=== PATIENT | female | born 1950 | race Caucasian/White ===

== ENCOUNTER 2021-03-12 03:45 | Inpatient (IN) | payer MEDICARE ==
[2021-03-12] MEDS ORDERED: Nitroglycerin 0.4 MG TAB 1 EACH ONE (03:55)
[2021-03-12] MEDS ORDERED: Morphine 4 MG/ML VIAL ONE (03:55)
[2021-03-12 04:24] LABS: #Basophils 0.1 thou/uL (0.0-0.2); #Eosinphils 0.2 thou/uL (0.0-0.7); #Lymphocytes 4.1 thou/uL (1.20-3.40); #Monocytes 1.1 thou/uL (0.11-0.59); #Neutrophils 6.8 thou/uL (1.40-6.50); %Basophils 0.5 % (0.0-1.0); %Eosinophils 1.3 % (0.0-10.0); %Lymphocytes 33.7 % (21.0-51.0); %Monocytes 8.6 % (0.0-10.0); %Neutrophils 55.9 % (42.0-75.0); Hemoglobin 13.7 g/dL (12.0-16.0); Mean Corpuscular HGB CONC 32.6 g/dL (32.0-36.0); Mean Corpuscular Hemoglobin 29.6 pg (27.0-31.0); Mean Corpuscular Volume 90.7 fL (78.0-98.0); Platelet Count 266 thou/uL (130-400); RBC Distribution Width 13.1 % (11.5-14.5); Red Blood Cell (RBC) Count 4.63 mill/uL (4.20-5.40); White Blood Cell (WBC) Count 12.2 thou/uL (4.8-10.8)
[2021-03-12 04:53] LABS: ALT (SGPT) 14 U/L (8-55); AST (SGOT) 13 U/L (5-34); Albumin 3.9 g/dL (3.4-4.8); Alkaline Phosphatase 95 U/L (40-110); Anion Gap 14 mmol/L (10-20); BUN (Urea Nitrogen) 23 mg/dL (9.8-20.1); Bilirubin, Total 0.3 mg/dL (0.2-1.2); Calc. Creatinine Clearance 0 mL/min (70-130); Calcium 9.8 mg/dL (7.8-10.44); Carbon Dioxide 21 mmol/L (23-31); Chloride 106 mmol/L (98-107); Globulin 3.1 g/dL (2.4-3.5); Glucose 182 mg/dL (83-110); Lipase 45 U/L (8-78); Potassium 3.1 mmol/L (3.5-5.1); Sodium 138 mmol/L (136-145)
[2021-03-12] MEDS ORDERED: Aspirin Chewable 81 MG TAB ONE ×3 (04:59→05:00)
[2021-03-12 05:06] LABS: CKMB 4.1 ng/mL (0-6.6)
[2021-03-12] MEDS ORDERED: Potassium Chloride 20 MEQ TAB PO SCH ×2 (06:45→08:49)
[2021-03-12 07:32] LABS: Troponin I 3.171 ng/mL (< 0.028)
[2021-03-12] MEDS ORDERED: Enoxaparin Sodium 40 MG/0.4 ML SYRINGE SC SCH (08:15)
[2021-03-12] MEDS ORDERED: Nitroglycerin 0.4 MG TAB (25 Tab Bottle) SL PRN ×3 (08:15→20:30)
[2021-03-12] MEDS ORDERED: Morphine 2 MG/ML VIAL SLOW IVP PRN (08:20)
[2021-03-12] MEDS ORDERED: Magnesium 2 GM/50 ML 2 GM in Premix Bag 1 BAG IVPB SCH (09:00)
[2021-03-12] MEDS ORDERED: Magnesium Sulfate 2 GM in Sodium Chloride 0.9% 100 ML IVPB SCH (09:00)
[2021-03-12] MEDS ORDERED: Enoxaparin Sodium 80 MG/0.8 ML SYRINGE SC SCH (09:00)
[2021-03-12 09:30] VITALS: BMI 31.4
[2021-03-12] MEDS ORDERED: Iopamidol 370 76% 100 ML VIAL ONE (09:30)
[2021-03-12] MEDS: Aspirin 325 mg Enteric Coated Tablet PO SCH (09:44)
[2021-03-12 10:00] LABS: Hemoglobin 13.3 g/dL (12.0-16.0); Mean Corpuscular HGB CONC 32.9 g/dL (32.0-36.0); Mean Corpuscular Hemoglobin 30.2 pg (27.0-31.0); Mean Corpuscular Volume 91.8 fL (78.0-98.0); Platelet Count 272 thou/uL (130-400); RBC Distribution Width 13.1 % (11.5-14.5); Red Blood Cell (RBC) Count 4.42 mill/uL (4.20-5.40); White Blood Cell (WBC) Count 11.1 thou/uL (4.8-10.8)
[2021-03-12 10:17] LABS: Eosinophils 3 % (0-10); Lymphocytes 19 % (21-51); MDiff Complete? YES; Monocytes 6 % (0-10); Neutrophil 63 % (42-75); Platelet Morphology Comment Appears Adequate; Reactive Lymphocytes 8 % (0-10)
[2021-03-12 10:27] LABS: Troponin I 6.688 ng/mL (< 0.028)
[2021-03-12] MEDS ORDERED: Metoprolol Tartrate 25 MG TAB PO SCH ×2 (10:30→21:00)
[2021-03-12] MEDS ORDERED: Carvedilol 6.25 MG TAB PO SCH ×3 (11:00→17:00)
[2021-03-12] MEDS ORDERED: Carvedilol 3.125 MG TAB PO SCH (11:30)
[2021-03-12] MEDS ORDERED: Clopidogrel Bisulfate 300 MG TAB PO SCH (11:30)
[2021-03-12 13:58] LABS: Troponin I 9.144 ng/mL (< 0.028)
[2021-03-12] MEDS: Carvedilol 3.125 MG TAB PO SCH (16:57)
[2021-03-12] MEDS ORDERED: Lidocaine 1% (PF) 30 ML VIAL ONE (17:52)
[2021-03-12] MEDS ORDERED: Nitroglycerin 100MG/250ML BOT 250 ML ONE (17:55)
[2021-03-12] MEDS ORDERED: Verapamil 5 MG/2 ML VIAL ONE (17:55)
[2021-03-12] MEDS ORDERED: Heparin 10,000 UNITS/ 10 ML VIAL ONE (17:55)
[2021-03-12] MEDS: Atorvastatin Calcium 40 MG TAB PO SCH (20:07)
[2021-03-12] MEDS ORDERED: Acetaminophen/Codeine 30-300mg Tablet PO PRN ×4 (20:30)
[2021-03-12] MEDS ORDERED: Sodium Chloride 0.9% 200 ML IV PRN ×2 (20:30)
[2021-03-12] MEDS ORDERED: Atorvastatin Calcium 40 MG TAB PO SCH (21:00)
[2021-03-13 02:38] LABS: SARS-CoV-2 NAA Rapid Test Not Detected (NotDetected)
[2021-03-13 05:39] LABS: Hemoglobin A1c 5.9 % (4.0-6.0)
[2021-03-13 05:56] LABS: Anion Gap 13 mmol/L (10-20); BUN (Urea Nitrogen) 16 mg/dL (9.8-20.1); Calc. Creatinine Clearance 62 mL/min (70-130); Calcium 9.3 mg/dL (7.8-10.44); Carbon Dioxide 22 mmol/L (23-31); Cardiac Risk 5.5 (Less than 4.5); Chloride 105 mmol/L (98-107); Cholesterol 193 mg/dl (< 200 Desired); Glucose 117 mg/dL (83-110); HDL Cholesterol 35 mg/dL (>60 Neg Risk); LDL Cholesterol, Calculated 117 mg/dL; Sodium 136 mmol/L (136-145); Triglycerides 204 mg/dL (Less than 150)
[2021-03-13] MEDS: Carvedilol 3.125 MG TAB PO SCH ×2 (08:13→17:21)
[2021-03-13] MEDS: Aspirin 325 mg Enteric Coated Tablet PO SCH (08:13)
[2021-03-13] MEDS ORDERED: Clopidogrel Bisulfate 75 MG TAB PO SCH (09:00)
[2021-03-13] MEDS: Atorvastatin Calcium 40 MG TAB PO SCH (21:16)
[2021-03-14] MEDS: Aspirin 325 mg Enteric Coated Tablet PO SCH (08:05)
[2021-03-14] MEDS: Carvedilol 3.125 MG TAB PO SCH ×2 (08:06→16:46)
[2021-03-14 09:37] LABS: #Eosinphils 0.1 thou/uL (0.0-0.7); #Lymphocytes 2.1 thou/uL (1.20-3.40); #Monocytes 0.9 thou/uL (0.11-0.59); #Neutrophils 6.8 thou/uL (1.40-6.50); %Basophils 0.1 % (0.0-1.0); %Eosinophils 1.3 % (0.0-10.0); %Lymphocytes 21.1 % (21.0-51.0); %Monocytes 8.8 % (0.0-10.0); %Neutrophils 68.7 % (42.0-75.0); Hemoglobin 13.8 g/dL (12.0-16.0); Mean Corpuscular HGB CONC 33.2 g/dL (32.0-36.0); Mean Corpuscular Volume 90.2 fL (78.0-98.0); Platelet Count 257 thou/uL (130-400); RBC Distribution Width 13.2 % (11.5-14.5); White Blood Cell (WBC) Count 9.9 thou/uL (4.8-10.8)
[2021-03-14] MEDS ORDERED: Enoxaparin Sodium 80 MG/0.8 ML SYRINGE SC SCH (11:00)
[2021-03-14] MEDS ORDERED: Lisinopril 10 MG TAB PO SCH (13:00)
[2021-03-14] MEDS: Atorvastatin Calcium 40 MG TAB PO SCH (20:56)
[2021-03-14] MEDS: Enoxaparin Sodium 80 MG/0.8 ML SYRINGE SC SCH (20:56)
[2021-03-15 05:13] LABS: Hemoglobin A1c 5.9 % (4.0-6.0)
[2021-03-15 05:25] LABS: Anion Gap 13 mmol/L (10-20); BUN (Urea Nitrogen) 21 mg/dL (9.8-20.1); Calc. Creatinine Clearance 52 mL/min (70-130); Calcium 9.1 mg/dL (7.8-10.44); Carbon Dioxide 22 mmol/L (23-31); Chloride 106 mmol/L (98-107); Glucose 109 mg/dL (83-110); Potassium 3.7 mmol/L (3.5-5.1); Sodium 137 mmol/L (136-145)
[2021-03-15] MEDS: Lisinopril 10 MG TAB PO SCH (08:44)
[2021-03-15] MEDS: Carvedilol 3.125 MG TAB PO SCH ×2 (08:44→16:41)
[2021-03-15] MEDS: Aspirin 325 mg Enteric Coated Tablet PO SCH (08:44)
[2021-03-15] MEDS: Enoxaparin Sodium 80 MG/0.8 ML SYRINGE SC SCH ×2 (09:04→20:13)
[2021-03-15] MEDS: Atorvastatin Calcium 40 MG TAB PO SCH (20:13)
[2021-03-16 05:25] LABS: #Basophils 0.1 thou/uL (0.0-0.2); #Eosinphils 0.2 thou/uL (0.0-0.7); #Lymphocytes 2.5 thou/uL (1.20-3.40); #Monocytes 0.9 thou/uL (0.11-0.59); #Neutrophils 4.9 thou/uL (1.40-6.50); %Basophils 0.8 % (0.0-1.0); %Eosinophils 2.1 % (0.0-10.0); %Lymphocytes 29.4 % (21.0-51.0); %Monocytes 10.3 % (0.0-10.0); %Neutrophils 57.4 % (42.0-75.0); Hemoglobin 12.8 g/dL (12.0-16.0); Mean Corpuscular HGB CONC 33.8 g/dL (32.0-36.0); Mean Corpuscular Hemoglobin 30.6 pg (27.0-31.0); Mean Corpuscular Volume 90.3 fL (78.0-98.0); Mean Platelet Volume 7.2 fL (7.4-10.4); Platelet Count 266 thou/uL (130-400); White Blood Cell (WBC) Count 8.6 thou/uL (4.8-10.8)
[2021-03-16 05:48] LABS: Anion Gap 13 mmol/L (10-20); BUN (Urea Nitrogen) 19 mg/dL (9.8-20.1); Calc. Creatinine Clearance 53 mL/min (70-130); Carbon Dioxide 19 mmol/L (23-31); Chloride 109 mmol/L (98-107); Glucose 121 mg/dL (83-110); Magnesium 1.7 mg/dL (1.6-2.6); Potassium 3.6 mmol/L (3.5-5.1); Sodium 137 mmol/L (136-145)
[2021-03-16] MEDS: Carvedilol 3.125 MG TAB PO SCH (08:42)
[2021-03-16] MEDS: Lisinopril 10 MG TAB PO SCH (08:42)
[2021-03-16] MEDS ORDERED: Aspirin 81 mg Enteric Coated Tablet PO SCH (09:00)
[2021-03-16] MEDS ORDERED: Clopidogrel Bisulfate 75 MG TAB PO SCH (09:00)
[2021-03-16 12:13] VITALS: BP 113/70; TEMP 98.2
== END 2021-03-16 14:35 | disposition home or self-care (01) | DRG 281 ==
LOC: ERS 03:45 → OBSVTOIN 05:24 → 2SW 05:24 → 2NO 03-13 17:57
PROVIDERS: ADMIT Student in an Organized Health Care Education/Training Program; ATTEND Internal Medicine
PROC: 4A023N7 Measurement of Cardiac Sampling and Pressure, Left Heart, Percutaneous Approach (ICD-10-PCS; principal; 2021-03-12)
PROC: B2111ZZ Fluoroscopy of Multiple Coronary Arteries using Low Osmolar Contrast (ICD-10-PCS; 2021-03-12)
DX: I21.4 Non-ST elevation (NSTEMI) myocardial infarction (principal); I50.22 Chronic systolic (congestive) heart failure; I25.3 Aneurysm of heart; N17.9 Acute kidney failure, unspecified; E87.6 Hypokalemia; E83.42 Hypomagnesemia; I11.0 Hypertensive heart disease with heart failure; I25.10 Atherosclerotic heart disease of native coronary artery without angina pectoris; E78.5 Hyperlipidemia, unspecified; I25.5 Ischemic cardiomyopathy; Z20.822 Contact with and (suspected) exposure to COVID-19
CPT/HCPCS: 36415; 71045; 80048; 80053; 80061; 82553; 83036; 83690; 83735; 84443; 84484; 85025; 93005; 93010; 93306; 93458; 93798; 94760; 97139; G0378; J1644; J1650; J2001; J2270; J3475; Q9967; U0002; U0005

== ENCOUNTER 2021-03-21 12:28 | Outpatient (CLI) | payer MEDICARE | END 2021-03-21 12:29 | disposition home or self-care (01) | LOC: NM 12:28 | PROVIDERS: ATTEND Internal Medicine Cardiovascular Disease | DX: I25.10 Atherosclerotic heart disease of native coronary artery without angina pectoris (principal) | CPT/HCPCS: 78466; A9505 ==

== ENCOUNTER 2021-03-31 08:49 | Outpatient (CLI) | payer MEDICARE | END 2021-03-31 08:50 | disposition home or self-care (01) | LOC: LABBT 08:49 | PROVIDERS: ATTEND Thoracic Surgery (Cardiothoracic Vascular Surgery) | DX: Z01.812 Encounter for preprocedural laboratory examination (principal); I25.10 Atherosclerotic heart disease of native coronary artery without angina pectoris; Z20.822 Contact with and (suspected) exposure to COVID-19 | CPT/HCPCS: 80048; 85027; 86850; 86900; 86901; U0003; U0005 ==

== ENCOUNTER 2021-03-31 09:00 | Inpatient (IN) | payer MEDICARE ==
[2021-03-31 11:38] LABS: Hemoglobin 12.6 g/dL (12.0-15.5); Mean Corpuscular HGB CONC 31.6 g/dL (32.0-36.0); Mean Corpuscular Hemoglobin 28.7 pg (27.0-33.0); Mean Corpuscular Volume 90.9 fl (81.6-98.3); Mean Platelet Volume 9.4 fl (7.4-10.4); Platelet Count 337 10x3/uL (150-450); RBC Distribution Width 13.5 % (11.5-14.5); Red Blood Cell (RBC) Count 4.39 10x6/uL (3.90-5.03); White Blood Cell (WBC) Count 7.4 10x3/uL (3.5-10.5)
[2021-03-31 11:40] LABS: Anion Gap 12 mmol/L (10-20); BUN (Urea Nitrogen) 21 mg/dL (9.8-20.1); Calc. Creatinine Clearance 0 mL/min (70-130); Calcium 9.4 mg/dL (7.8-10.44); Carbon Dioxide 22 mmol/L (23-31); Chloride 110 mmol/L (98-107); Glucose 144 mg/dL (83-110); Potassium 4.2 mmol/L (3.5-5.1); Sodium 140 mmol/L (136-145)
[2021-04-01 12:13] LABS: SARS-CoV-2 PCR by NAA Not Detected (NotDetected)
[2021-04-05] MEDS ORDERED: Albumin 5% 500 ML ONE (06:29)
[2021-04-05] MEDS ORDERED: Fentanyl 250 MCG/5 ML VIAL ONE (06:48)
[2021-04-05] MEDS ORDERED: Midazolam HCl 5 mg/5 ml Vial ONE (06:49)
[2021-04-05] MEDS ORDERED: Dexmedetomidine 200 MCG/2 ML VIAL ONE (06:49)
[2021-04-05] MEDS ORDERED: Heparin 10,000 UNITS/1 ML VIAL 30,000 UNITS in Sodium Chloride 0.9% 1,000 ML FS SCH (07:00)
[2021-04-05] MEDS ORDERED: Midazolam HCl 2 mg/2 ml Vial ONE (07:11)
[2021-04-05] MEDS ORDERED: Nitroglycerin 50 MG/250 ML BOT 250 ML IVPB PRN (07:42)
[2021-04-05] MEDS ORDERED: Bisacodyl 10 MG SUPP PR PRN (07:42)
[2021-04-05] MEDS ORDERED: niCARdipine 25 MG in Sodium Chloride 0.9% 250 ML 250 ML IVPB PRN (07:42)
[2021-04-05] MEDS ORDERED: Morphine 2 MG/ML VIAL SLOW IVP PRN (07:42)
[2021-04-05] MEDS ORDERED: Potassium Chloride 20 MEQ/100 ML PREMIX BAG IVPB PRN (07:42)
[2021-04-05] MEDS ORDERED: Post-Op Insulin Drip Protocol IVPB ONE (07:42)
[2021-04-05] MEDS ORDERED: hydrALAZINE 20 MG/ML VIAL SLOW IVP PRN (07:42)
[2021-04-05] MEDS ORDERED: Mag-Al 1200 mg/1200 mg/30 ML UDCUP PO PRN (07:42)
[2021-04-05] MEDS ORDERED: Fentanyl 100 MCG/2 ML VIAL SLOW IVP PRN ×2 (07:42)
[2021-04-05] MEDS ORDERED: Norepinephrine 8 MG/0.9% NS 250 ML IVPB PRN (07:42)
[2021-04-05] MEDS ORDERED: Ondansetron PF 4 MG/2 ML Vial IVP PRN (07:42)
[2021-04-05] MEDS ORDERED: Guaifenesin DM 100-10/5 ML UDCUP PO PRN (07:42)
[2021-04-05] MEDS ORDERED: Hetastarch 6% 500 ML 500 ML IVPB PRN (07:42)
[2021-04-05] MEDS ORDERED: Bisacodyl 5 MG TAB PO PRN (07:42)
[2021-04-05] MEDS ORDERED: HYDROcodone/Acetaminophen 5/325 mg Tablet PO PRN (07:42)
[2021-04-05] MEDS ORDERED: Glycopyrrolate 0.2 MG/ML 5 ML SYRINGE ONE (07:57)
[2021-04-05] MEDS ORDERED: Heparin 30,000 units/30 ml VIAL ONE (07:57)
[2021-04-05] MEDS ORDERED: Mannitol 12.5 GM/50 ML ONE (07:57)
[2021-04-05] MEDS ORDERED: Lidocaine 1% PF 5 ML VIAL ONE (07:57)
[2021-04-05] MEDS ORDERED: Potassium Chloride 60 MEQ/30 ML VIAL ONE (07:57)
[2021-04-05] MEDS ORDERED: Sodium Bicarb 50 MEQ/50 ML Abboject 8.4% SYRINGE ONE (07:57)
[2021-04-05] MEDS ORDERED: Calcium Chloride 1 GM/10 ML Abboject SYRINGE ONE (07:57)
[2021-04-05] MEDS ORDERED: Vecuronium 10 MG VIAL ONE (07:57)
[2021-04-05] MEDS ORDERED: Ondansetron PF 4 MG/2 ML Vial ONE (07:57)
[2021-04-05] MEDS ORDERED: Dexamethasone 20 MG/5 ML VIAL ONE (07:57)
[2021-04-05] MEDS ORDERED: Protamine Sulfate 250 MG/25 ML VIAL ONE (07:57)
[2021-04-05] MEDS ORDERED: Papaverine 60 MG/2 ML VIAL ONE (07:57)
[2021-04-05] MEDS ORDERED: Magnesium Sulfate 1 GM/2 ML VIAL ONE (07:57)
[2021-04-05] MEDS ORDERED: PROPOFOL 200 MG/20 ML VIAL ONE (07:57)
[2021-04-05] MEDS ORDERED: Heparin 5,000 UNITS/ML VIAL ONE (07:57)
[2021-04-05] MEDS ORDERED: Lidocaine 2% PF 100 mg/5 ml Syringe ONE (07:57)
[2021-04-05] MEDS ORDERED: Aminocaproic Acid 5 GM/20 ML VIAL ONE (07:57)
[2021-04-05] MEDS ORDERED: Cardioplegic Soln 1,000 ML BAG ONE (07:57)
[2021-04-05] MEDS ORDERED: Thrombin 5000 UNITS/5 ML VIAL ONE (07:57)
[2021-04-05] MEDS ORDERED: Norepinephrine 4 MG/4 ML VIAL ONE (07:57)
[2021-04-05] MEDS ORDERED: Lantus 1000 UNITS/10 ML VIAL SC PRN (08:45)
[2021-04-05] MEDS ORDERED: Insulin Regular 300 UNITS/3 ML VIAL SC PRN (08:45)
[2021-04-05] MEDS ORDERED: Dextrose 50% Abboject 50 ML SYRINGE SLOW IVP PRN (08:45)
[2021-04-05] MEDS ORDERED: Dextrose 5% in Water 1,000 ML IV PRN (08:45)
[2021-04-05] MEDS ORDERED: HUMULIN R 100 UNITS in Sodium Chloride 0.9% 100 ML IVPB SCH (08:45)
[2021-04-05] MEDS ORDERED: Insulin Regular 300 UNITS/3 ML VIAL ONE ×2 (11:01→11:31)
[2021-04-05] MEDS ORDERED: Milrinone 10 MG/10 ML VIAL ONE (11:01)
[2021-04-05] MEDS: Aspirin Chewable 81 MG TAB PO SCH (14:13)
[2021-04-05] MEDS: Docusate 100 MG CAP PO SCH ×2 (14:14→19:20)
[2021-04-05 14:55] LABS: Hemoglobin 10.3 g/dL (12.0-16.0); Mean Corpuscular HGB CONC 31.8 g/dL (32.0-36.0); Mean Corpuscular Hemoglobin 29.2 pg (27.0-31.0); Mean Corpuscular Volume 91.7 fL (78.0-98.0); Mean Platelet Volume 6.9 fL (7.4-10.4); Platelet Count 172 thou/uL (130-400); RBC Distribution Width 13.2 % (11.5-14.5); Red Blood Cell (RBC) Count 3.52 mill/uL (4.20-5.40); White Blood Cell (WBC) Count 21.6 thou/uL (4.8-10.8)
[2021-04-05 14:58] LABS: Potassium 3.9 mmol/L (3.5-5.1)
[2021-04-05] MEDS: Sodium Chloride 0.9% 1,000 ML IV SCH ×2 (15:00→22:33)
[2021-04-05 15:01] LABS: INR-International Normal Ratio 1.4
[2021-04-05 15:02] LABS: PTT 33.6 sec (22.9-36.1)
[2021-04-05 15:04] LABS: Anion Gap 10 mmol/L (10-20); BUN (Urea Nitrogen) 12 mg/dL (9.8-20.1); Calc. Creatinine Clearance 84 mL/min (70-130); Calcium 7.7 mg/dL (7.8-10.44); Carbon Dioxide 23 mmol/L (23-31); Chloride 114 mmol/L (98-107); Glucose 120 mg/dL (83-110); Potassium 3.9 mmol/L (3.5-5.1); Sodium 143 mmol/L (136-145)
[2021-04-05 15:16] LABS: Actual Bicarbonate (HCO3a) 23.7 mEq/L (22-28); Base Excess (BEa) -1.8 mEq/L (-2.0 to +3.0); CO2 Tension 43.2 mmHg (35.0-45.0); Calcium, Ionized (arterial) 1.14 mmol/L (1.12-1.30); Carboxyhemoglobin (COHb) 0.5 gm% (0.0-3.0); Hemoglobin (Hb) 11.6 g/dL (12.0-16.0); O2 Tension (PaO2), arterial 77.6 mmHg (> 70.0); Potassium - ABG Lab 3.87 mmol/L (3.70-5.30); Puncture Site Arterial Line; pH, Arterial 7.36 (7.35-7.45)
[2021-04-05 15:24] LABS: Band 50 % (5-11); Lymphocytes 3 % (21-51); MDiff Complete? YES; Metamyelocyte 1 % (0-0); Monocytes 8 % (0-10); Myelocyte 2 % (0-0); Neutrophil 36 % (42-75); Platelet Morphology Comment Appears Adequate; Polychromasia SLIGHT = 2-3 cells (100X) (0-2/hpf); Reflex for Review?? NO
[2021-04-05] MEDS: Ketorolac Tromethamine 30 MG/ML VIAL IVP SCH ×2 (15:49→17:21)
[2021-04-05] MEDS: Atorvastatin Calcium 40 MG TAB PO SCH (19:20)
[2021-04-05] MEDS: HYDROcodone/Acetaminophen 5/325 mg Tablet PO PRN (19:30)
[2021-04-06] MEDS: Ketorolac Tromethamine 30 MG/ML VIAL IVP SCH ×2 (00:05→06:14)
[2021-04-06 04:43] LABS: #Lymphocytes 1.4 thou/uL (1.20-3.40); #Monocytes 1.1 thou/uL (0.11-0.59); #Neutrophils 12.5 thou/uL (1.40-6.50); %Basophils 0.3 % (0.0-1.0); %Eosinophils 0.1 % (0.0-10.0); %Lymphocytes 9.2 % (21.0-51.0); %Neutrophils 83.4 % (42.0-75.0); Hemoglobin 9.8 g/dL (12.0-16.0); Mean Corpuscular HGB CONC 34.2 g/dL (32.0-36.0); Mean Corpuscular Hemoglobin 31.2 pg (27.0-31.0); Mean Corpuscular Volume 91.3 fL (78.0-98.0); Mean Platelet Volume 7.8 fL (7.4-10.4); Platelet Count 161 thou/uL (130-400); RBC Distribution Width 13.4 % (11.5-14.5); Red Blood Cell (RBC) Count 3.15 mill/uL (4.20-5.40)
[2021-04-06 05:29] LABS: Anion Gap 10 mmol/L (10-20); BUN (Urea Nitrogen) 20 mg/dL (9.8-20.1); Calc. Creatinine Clearance 51 mL/min (70-130); Calcium 8.1 mg/dL (7.8-10.44); Carbon Dioxide 23 mmol/L (23-31); Chloride 115 mmol/L (98-107); Glucose 135 mg/dL (83-110); Potassium 3.6 mmol/L (3.5-5.1); Sodium 144 mmol/L (136-145)
[2021-04-06] MEDS: Lactated Ringer's 1,000 ML IV SCH (06:14)
[2021-04-06] MEDS: Aspirin Chewable 81 MG TAB PO SCH (08:38)
[2021-04-06] MEDS: Docusate 100 MG CAP PO SCH ×2 (08:42→20:22)
[2021-04-06] MEDS: Acetaminophen 325 MG TAB PO PRN (12:32)
[2021-04-06] MEDS ORDERED: Lantus 1000 UNITS/10 ML VIAL SC PRN (13:19)
[2021-04-06] MEDS: Atorvastatin Calcium 40 MG TAB PO SCH (20:19)
[2021-04-06] MEDS: HYDROcodone/Acetaminophen 5/325 mg Tablet PO PRN (20:20)
[2021-04-07] MEDS: Lactated Ringer's 1,000 ML IV SCH (02:01)
[2021-04-07] MEDS: HYDROcodone/Acetaminophen 5/325 mg Tablet PO PRN (04:17)
[2021-04-07 04:41] LABS: #Lymphocytes 2.2 thou/uL (1.20-3.40); #Monocytes 1.7 thou/uL (0.11-0.59); #Neutrophils 11.7 thou/uL (1.40-6.50); %Basophils 0.2 % (0.0-1.0); %Eosinophils 0.1 % (0.0-10.0); %Lymphocytes 14.3 % (21.0-51.0); %Monocytes 10.7 % (0.0-10.0); %Neutrophils 74.6 % (42.0-75.0); Hemoglobin 8.8 g/dL (12.0-16.0); Mean Corpuscular HGB CONC 33.7 g/dL (32.0-36.0); Mean Corpuscular Hemoglobin 30.8 pg (27.0-31.0); Mean Corpuscular Volume 91.5 fL (78.0-98.0); Mean Platelet Volume 7.6 fL (7.4-10.4); Platelet Count 158 thou/uL (130-400); RBC Distribution Width 13.8 % (11.5-14.5); Red Blood Cell (RBC) Count 2.86 mill/uL (4.20-5.40); White Blood Cell (WBC) Count 15.6 thou/uL (4.8-10.8)
[2021-04-07 05:02] LABS: Anion Gap 11 mmol/L (10-20); BUN (Urea Nitrogen) 23 mg/dL (9.8-20.1); Calc. Creatinine Clearance 70 mL/min (70-130); Calcium 8.3 mg/dL (7.8-10.44); Carbon Dioxide 22 mmol/L (23-31); Chloride 113 mmol/L (98-107); Glucose 137 mg/dL (83-110); Potassium 3.5 mmol/L (3.5-5.1); Sodium 142 mmol/L (136-145)
[2021-04-07 06:04] VITALS: BMI 32.3
[2021-04-07] MEDS: Carvedilol 3.125 MG TAB PO SCH ×2 (07:48→17:54)
[2021-04-07] MEDS: Polyethylene Glycol 3350 17 GM Packet PO SCH (07:48)
[2021-04-07] MEDS: Docusate 100 MG CAP PO SCH ×2 (07:48→20:16)
[2021-04-07] MEDS: Aspirin Chewable 81 MG TAB PO SCH (07:48)
[2021-04-07] MEDS: Furosemide 40 MG TAB PO SCH (07:48)
[2021-04-07] MEDS: Potassium Chloride 10 MEQ TAB PO SCH (07:48)
[2021-04-07 11:07] LABS: Actual Bicarbonate (HCO3a) 18.4 mEq/L (22-28); Analyzer IN Cardio OR; Base Excess (BEa) -6.7 mEq/L (-2.0 to +3.0); CO2 Tension 35.2 mmHg (35.0-45.0); Calcium, Ionized (arterial) 1.09 mmol/L (1.12-1.30); Carboxyhemoglobin (COHb) 0.3 gm% (0.0-3.0); O2 Tension (PaO2), arterial 297.9 mmHg (> 70.0); Potassium - ABG Lab 3.53 mmol/L (3.70-5.30); pH, Arterial 7.34 (7.35-7.45)
[2021-04-07 11:07] LABS: Analyzer IN Cardio OR; Base Excess (BEa) -2.8 mEq/L (-2.0 to +3.0); Calcium, Ionized (arterial) 1.17 mmol/L (1.12-1.30); Carboxyhemoglobin (COHb) 0.2 gm% (0.0-3.0); Hemoglobin (Hb) 12.2 g/dL (12.0-16.0); O2 Tension (PaO2), arterial 236.2 mmHg (> 70.0); Potassium - ABG Lab 3.27 mmol/L (3.70-5.30); pH, Arterial 7.38 (7.35-7.45)
[2021-04-07 11:07] LABS: Actual Bicarbonate (HCO3a) 25.1 mEq/L (22-28); Analyzer IN Cardio OR; Base Excess (BEa) 0.5 mEq/L (-2.0 to +3.0); CO2 Tension 39.9 mmHg (35.0-45.0); Carboxyhemoglobin (COHb) 0.3 gm% (0.0-3.0); Hemoglobin (Hb) 7.8 g/dL (12.0-16.0); O2 Tension (PaO2), arterial 403.3 mmHg (> 70.0); Potassium - ABG Lab 3.76 mmol/L (3.70-5.30); pH, Arterial 7.42 (7.35-7.45)
[2021-04-07 11:08] LABS: Analyzer IN Cardio OR; Base Excess (BEa) -0.7 mEq/L (-2.0 to +3.0); CO2 Tension 46.7 mmHg (35.0-45.0); Calcium, Ionized (arterial) 0.92 mmol/L (1.12-1.30); Carboxyhemoglobin (COHb) 0.8 gm% (0.0-3.0); Hemoglobin (Hb) 6.5 g/dL (12.0-16.0); O2 Tension (PaO2), arterial 316.3 mmHg (> 70.0); Potassium - ABG Lab 4.09 mmol/L (3.70-5.30); pH, Arterial 7.35 (7.35-7.45)
[2021-04-07 11:08] LABS: Actual Bicarbonate (HCO3a) 23.2 mEq/L (22-28); Analyzer IN Cardio OR; Base Excess (BEa) -2.9 mEq/L (-2.0 to +3.0); CO2 Tension 46.4 mmHg (35.0-45.0); Calcium, Ionized (arterial) 1.17 mmol/L (1.12-1.30); Carboxyhemoglobin (COHb) 0.8 gm% (0.0-3.0); Hemoglobin (Hb) 8.5 g/dL (12.0-16.0); O2 Tension (PaO2), arterial 107.7 mmHg (> 70.0); Potassium - ABG Lab 3.68 mmol/L (3.70-5.30); pH, Arterial 7.32 (7.35-7.45)
[2021-04-07 11:08] LABS: Actual Bicarbonate (HCO3a) 21.7 mEq/L (22-28); Analyzer IN Cardio OR; Base Excess (BEa) -3.5 mEq/L (-2.0 to +3.0); CO2 Tension 39.5 mmHg (35.0-45.0); Calcium, Ionized (arterial) 0.96 mmol/L (1.12-1.30); Carboxyhemoglobin (COHb) 0.4 gm% (0.0-3.0); Hemoglobin (Hb) 7.2 g/dL (12.0-16.0); O2 Tension (PaO2), arterial 374.7 mmHg (> 70.0); Potassium - ABG Lab 4.05 mmol/L (3.70-5.30); pH, Arterial 7.36 (7.35-7.45)
[2021-04-07 11:09] LABS: Puncture Site Arterial Line
[2021-04-07 11:09] LABS: Actual Bicarbonate (HCO3a) 21.3 mEq/L (22-28); Analyzer IN Cardio OR; Calcium, Ionized (arterial) 1.12 mmol/L (1.12-1.30); Carboxyhemoglobin (COHb) 0.1 gm% (0.0-3.0); Hemoglobin (Hb) 9.7 g/dL (12.0-16.0); O2 Tension (PaO2), arterial 256.9 mmHg (> 70.0); Potassium - ABG Lab 3.32 mmol/L (3.70-5.30); pH, Arterial 7.29 (7.35-7.45)
[2021-04-07 11:10] LABS: Puncture Site Arterial Line
[2021-04-07 11:10] LABS: Puncture Site Arterial Line
[2021-04-07 11:13] LABS: Puncture Site Arterial Line
[2021-04-07 11:13] LABS: Puncture Site Arterial Line
[2021-04-07 11:14] LABS: Puncture Site Arterial Line
[2021-04-07 11:14] LABS: Puncture Site Arterial Line
[2021-04-07] MEDS: Atorvastatin Calcium 40 MG TAB PO SCH (20:16)
[2021-04-07] MEDS: Acetaminophen 325 MG TAB PO PRN (22:09)
[2021-04-08 04:06] LABS: #Eosinphils 0.1 thou/uL (0.0-0.7); #Lymphocytes 2.7 thou/uL (1.20-3.40); #Monocytes 1.4 thou/uL (0.11-0.59); #Neutrophils 9.6 thou/uL (1.40-6.50); %Basophils 0.1 % (0.0-1.0); %Eosinophils 0.6 % (0.0-10.0); %Lymphocytes 19.6 % (21.0-51.0); %Monocytes 10.4 % (0.0-10.0); %Neutrophils 69.3 % (42.0-75.0); Hemoglobin 8.5 g/dL (12.0-16.0); Mean Corpuscular HGB CONC 34.2 g/dL (32.0-36.0); Mean Corpuscular Hemoglobin 31.3 pg (27.0-31.0); Mean Corpuscular Volume 91.4 fL (78.0-98.0); Mean Platelet Volume 7.5 fL (7.4-10.4); Platelet Count 149 thou/uL (130-400); RBC Distribution Width 13.7 % (11.5-14.5); Red Blood Cell (RBC) Count 2.72 mill/uL (4.20-5.40); White Blood Cell (WBC) Count 13.9 thou/uL (4.8-10.8)
[2021-04-08 04:24] LABS: Anion Gap 11 mmol/L (10-20); BUN (Urea Nitrogen) 20 mg/dL (9.8-20.1); Calc. Creatinine Clearance 78 mL/min (70-130); Carbon Dioxide 23 mmol/L (23-31); Chloride 109 mmol/L (98-107); Glucose 122 mg/dL (83-110); Potassium 3.3 mmol/L (3.5-5.1); Sodium 140 mmol/L (136-145)
[2021-04-08] MEDS: Carvedilol 3.125 MG TAB PO SCH ×2 (08:18→16:34)
[2021-04-08] MEDS: Potassium Chloride 10 MEQ TAB PO SCH (08:18)
[2021-04-08] MEDS: Docusate 100 MG CAP PO SCH (08:18)
[2021-04-08] MEDS: Aspirin Chewable 81 MG TAB PO SCH (08:18)
[2021-04-08] MEDS: Furosemide 40 MG TAB PO SCH (08:18)
[2021-04-08] MEDS: Polyethylene Glycol 3350 17 GM Packet PO SCH (08:21)
[2021-04-08] MEDS ORDERED: Amiodarone 150 MG in Dextrose 5% in Water 100 ML IVPB SCH (10:00)
[2021-04-08] MEDS: Amiodarone 450 MG, Admixture Fee 1 EACH in Dextrose 5% in Water 250 ML IVPB SCH ×2 (11:10→18:08)
[2021-04-08] MEDS ORDERED: traMADol HCl 50 MG TAB PO PRN (14:48)
[2021-04-08] MEDS ORDERED: Nitroglycerin 0.4 MG TAB (25 Tab Bottle) SL PRN (14:48)
[2021-04-08] MEDS ORDERED: Lisinopril 5 MG TAB PO SCH (15:00)
[2021-04-08] MEDS ORDERED: Famotidine 20 MG TAB PO SCH (15:00)
[2021-04-08] MEDS: Atorvastatin Calcium 40 MG TAB PO SCH (20:39)
[2021-04-08] MEDS: Famotidine 20 MG TAB PO SCH (20:40)
[2021-04-08] MEDS: Acetaminophen 325 MG TAB PO PRN (20:40)
[2021-04-09 04:30] LABS: #Basophils 0.1 thou/uL (0.0-0.2); #Eosinphils 0.2 thou/uL (0.0-0.7); #Lymphocytes 3.4 thou/uL (1.20-3.40); #Monocytes 1.3 thou/uL (0.11-0.59); %Basophils 0.4 % (0.0-1.0); %Eosinophils 1.6 % (0.0-10.0); %Lymphocytes 26.1 % (21.0-51.0); %Monocytes 10.3 % (0.0-10.0); %Neutrophils 61.6 % (42.0-75.0); Hemoglobin 8.7 g/dL (12.0-16.0); Mean Corpuscular HGB CONC 34.1 g/dL (32.0-36.0); Mean Corpuscular Volume 90.9 fL (78.0-98.0); Mean Platelet Volume 7.3 fL (7.4-10.4); Platelet Count 168 thou/uL (130-400); RBC Distribution Width 13.5 % (11.5-14.5); Red Blood Cell (RBC) Count 2.81 mill/uL (4.20-5.40)
[2021-04-09] MEDS ORDERED: Potassium Chloride 20 MEQ TAB PO SCH (09:00)
[2021-04-09] MEDS: Furosemide 40 MG TAB PO SCH (09:20)
[2021-04-09] MEDS: Carvedilol 3.125 MG TAB PO SCH ×2 (09:20→17:22)
[2021-04-09] MEDS: Aspirin Chewable 81 MG TAB PO SCH (09:21)
[2021-04-09] MEDS: Polyethylene Glycol 3350 17 GM Packet PO SCH (09:21)
[2021-04-09] MEDS: Lisinopril 5 MG TAB PO SCH (09:21)
[2021-04-09] MEDS: Famotidine 20 MG TAB PO SCH ×2 (09:21→21:03)
[2021-04-09] MEDS: Potassium Chloride 10 MEQ TAB PO SCH ×2 (09:24→17:22)
[2021-04-09] MEDS ORDERED: Amiodarone 200 MG TAB PO SCH (10:15)
[2021-04-09] MEDS: Amiodarone 200 MG TAB PO SCH ×2 (15:43→21:03)
[2021-04-09] MEDS: Atorvastatin Calcium 40 MG TAB PO SCH (21:03)
[2021-04-09] MEDS: Acetaminophen 325 MG TAB PO PRN (21:03)
[2021-04-10 05:33] LABS: Anion Gap 11 mmol/L (10-20); BUN (Urea Nitrogen) 12 mg/dL (9.8-20.1); Calc. Creatinine Clearance 72 mL/min (70-130); Calcium 8.6 mg/dL (7.8-10.44); Carbon Dioxide 24 mmol/L (23-31); Chloride 106 mmol/L (98-107); Glucose 117 mg/dL (83-110); Potassium 3.3 mmol/L (3.5-5.1); Sodium 138 mmol/L (136-145)
[2021-04-10] MEDS: Famotidine 20 MG TAB PO SCH ×2 (08:50→21:24)
[2021-04-10] MEDS: Lisinopril 5 MG TAB PO SCH (08:50)
[2021-04-10] MEDS: Aspirin Chewable 81 MG TAB PO SCH (08:50)
[2021-04-10] MEDS: Furosemide 40 MG TAB PO SCH (08:51)
[2021-04-10] MEDS: Potassium Chloride 10 MEQ TAB PO SCH ×2 (08:51→17:39)
[2021-04-10] MEDS: Acetaminophen 325 MG TAB PO PRN ×2 (08:51→15:36)
[2021-04-10] MEDS: Carvedilol 3.125 MG TAB PO SCH ×2 (08:51→17:39)
[2021-04-10] MEDS: Polyethylene Glycol 3350 17 GM Packet PO SCH (08:57)
[2021-04-10] MEDS: Amiodarone 200 MG TAB PO SCH ×3 (08:57→21:24)
[2021-04-10] MEDS ORDERED: Potassium Chloride 20 MEQ TAB PO SCH (09:15)
[2021-04-10] MEDS ORDERED: Lisinopril 5 MG TAB PO SCH (09:15)
[2021-04-10] MEDS: Atorvastatin Calcium 40 MG TAB PO SCH (21:24)
[2021-04-11] MEDS: Acetaminophen 325 MG TAB PO PRN (03:05)
[2021-04-11 04:40] VITALS: TEMP 98.2
[2021-04-11 05:31] LABS: Anion Gap 15 mmol/L (10-20); BUN (Urea Nitrogen) 14 mg/dL (9.8-20.1); Calc. Creatinine Clearance 64 mL/min (70-130); Calcium 8.6 mg/dL (7.8-10.44); Carbon Dioxide 24 mmol/L (23-31); Chloride 104 mmol/L (98-107); Glucose 108 mg/dL (83-110); Potassium 3.6 mmol/L (3.5-5.1); Sodium 139 mmol/L (136-145)
[2021-04-11] MEDS: Potassium Chloride 10 MEQ TAB PO SCH (08:27)
[2021-04-11] MEDS: Furosemide 40 MG TAB PO SCH (08:27)
[2021-04-11] MEDS: Amiodarone 200 MG TAB PO SCH (08:27)
[2021-04-11] MEDS: Aspirin Chewable 81 MG TAB PO SCH (08:27)
[2021-04-11] MEDS: Famotidine 20 MG TAB PO SCH (08:27)
[2021-04-11] MEDS: Carvedilol 3.125 MG TAB PO SCH (08:27)
[2021-04-11] MEDS: Polyethylene Glycol 3350 17 GM Packet PO SCH (08:27)
[2021-04-11] MEDS ORDERED: Lisinopril 10 MG TAB PO SCH (09:00)
[2021-04-11 12:00] VITALS: BP 155/68
== END 2021-04-11 12:13 | disposition home or self-care (01) | DRG 235 ==
LOC: SURG A 04-05 06:02 → CCU 04-05 14:19 → 2NO 04-08 14:38
PROVIDERS: ADMIT Thoracic Surgery (Cardiothoracic Vascular Surgery); ATTEND Thoracic Surgery (Cardiothoracic Vascular Surgery)
PROC: 02100Z9 Bypass Coronary Artery, One Artery from Left Internal Mammary, Open Approach (ICD-10-PCS; principal; 2021-04-05)
PROC: 021309W Bypass Coronary Artery, Four or More Arteries from Aorta with Autologous Venous Tissue, Open Approach (ICD-10-PCS; 2021-04-05)
PROC: 06BQ4ZZ Excision of Left Saphenous Vein, Percutaneous Endoscopic Approach (ICD-10-PCS; 2021-04-05)
PROC: 5A1221Z Performance of Cardiac Output, Continuous (ICD-10-PCS; 2021-04-05)
DX: I25.10 Atherosclerotic heart disease of native coronary artery without angina pectoris (principal); I21.4 Non-ST elevation (NSTEMI) myocardial infarction; R47.01 Aphasia; G93.40 Encephalopathy, unspecified; I25.5 Ischemic cardiomyopathy; E78.5 Hyperlipidemia, unspecified; I10 Essential (primary) hypertension; I48.0 Paroxysmal atrial fibrillation; Z20.822 Contact with and (suspected) exposure to COVID-19; E87.6 Hypokalemia; Z79.01 Long term (current) use of anticoagulants; Z79.82 Long term (current) use of aspirin; Z79.899 Other long term (current) drug therapy
CPT/HCPCS: 36415; 36416; 36430; 71045; 80048; 82805; 85025; 85027; 85610; 85730; 86850; 86900; 86901; 93005; 93010; 93798; 97139; J0282; J0360; J0690; J1100; J1642; J1644; J1815; J1885; J2001; J2150; J2250; J2260; J2405; J2440; J2704; J2720; J3010; J3370; J3475; J3480; J3490; J7070; P9016; P9045; S0017; U0003; U0005

== ENCOUNTER 2021-04-14 21:01 | Inpatient (IN) | payer MEDICARE ==
[2021-04-14] MEDS ORDERED: Pantoprazole 40 MG VIAL ONE (21:30)
[2021-04-14 21:49] LABS: #Eosinphils 0.2 thou/uL (0.0-0.7); #Monocytes 1.5 thou/uL (0.11-0.59); #Neutrophils 11.2 thou/uL (1.40-6.50); %Basophils 0.3 % (0.0-1.0); %Eosinophils 1.1 % (0.0-10.0); %Monocytes 9.4 % (0.0-10.0); %Neutrophils 70.2 % (42.0-75.0); Mean Corpuscular HGB CONC 33.9 g/dL (32.0-36.0); Mean Corpuscular Hemoglobin 31.5 pg (27.0-31.0); Mean Corpuscular Volume 92.8 fL (78.0-98.0); Mean Platelet Volume 6.6 fL (7.4-10.4); Platelet Count 513 thou/uL (130-400); RBC Distribution Width 14.7 % (11.5-14.5); Red Blood Cell (RBC) Count 2.85 mill/uL (4.20-5.40); White Blood Cell (WBC) Count 15.9 thou/uL (4.8-10.8)
[2021-04-14 22:00] LABS: PTT 24.5 sec (22.9-36.1); Prothrombin Time 13.1 sec (12.0-14.7)
[2021-04-14 22:06] LABS: ALT (SGPT) 22 U/L (8-55); AST (SGOT) 20 U/L (5-34); Albumin 3.3 g/dL (3.4-4.8); Alkaline Phosphatase 83 U/L (40-110); Anion Gap 16 mmol/L (10-20); BUN (Urea Nitrogen) 17 mg/dL (9.8-20.1); Bilirubin, Total 0.5 mg/dL (0.2-1.2); Calc. Creatinine Clearance 0 mL/min (70-130); Calcium 8.5 mg/dL (7.8-10.44); Carbon Dioxide 18 mmol/L (23-31); Chloride 109 mmol/L (98-107); Globulin 2.6 g/dL (2.4-3.5); Glucose 143 mg/dL (83-110); Potassium 3.7 mmol/L (3.5-5.1); Protein, Total 5.9 g/dL (5.8-8.1); Sodium 139 mmol/L (136-145)
[2021-04-14 22:26] LABS: CKMB 0.7 ng/mL (0-6.6)
[2021-04-14] MEDS ORDERED: Ondansetron PF 4 MG/2 ML Vial ONE (23:03)
[2021-04-14] MEDS ORDERED: Ondansetron PF 4 MG/2 ML Vial IVP PRN (23:55)
[2021-04-14] MEDS ORDERED: Acetaminophen 325 MG TAB PO PRN (23:55)
[2021-04-15] MEDS ORDERED: Sodium Chloride 0.9% 1,000 ML IV SCH ×3 (01:00→09:00)
[2021-04-15] MEDS ORDERED: Furosemide 40 MG/4 ML VIAL SLOW IVP SCH (01:15)
[2021-04-15] MEDS ORDERED: Promethazine HCl 12.5 MG in Sodium Chloride 0.9% 50 ML IVPB PRN (01:38)
[2021-04-15] MEDS ORDERED: Norepinephrine 8 MG/0.9% NS 250 ML IVPB PRN (01:41)
[2021-04-15] MEDS ORDERED: Amiodarone 450 MG in Dextrose 5% in Water 250 ML IVPB SCH (02:15)
[2021-04-15 02:17] LABS: Hemoglobin 10.2 g/dL (12.0-16.0)
[2021-04-15 02:19] VITALS: BMI 31.3
[2021-04-15 02:40] LABS: Troponin I 0.111 ng/mL (< 0.028)
[2021-04-15 03:07] LABS: Anion Gap 18 mmol/L (10-20); BUN (Urea Nitrogen) 18 mg/dL (9.8-20.1); Calc. Creatinine Clearance 48 mL/min (70-130); Calcium 7.6 mg/dL (7.8-10.44); Carbon Dioxide 15 mmol/L (23-31); Chloride 112 mmol/L (98-107); Glucose 168 mg/dL (83-110); Magnesium 1.4 mg/dL (1.6-2.6); Potassium 3.8 mmol/L (3.5-5.1); Sodium 141 mmol/L (136-145)
[2021-04-15 03:20] LABS: SARS-CoV-2 NAA Rapid Test DETECTED (NotDetected)
[2021-04-15] MEDS ORDERED: Potassium Chloride 10 MEQ in Premix Bag 1 BAG IVPB SCH (04:00)
[2021-04-15] MEDS: Magnesium 2 GM/50 ML 2 GM in Premix Bag 1 BAG IVPB SCH ×2 (04:14→10:07)
[2021-04-15 05:24] LABS: Troponin I 0.124 ng/mL (< 0.028)
[2021-04-15 05:35] LABS: Hemoglobin 9.3 g/dL (12.0-16.0); Mean Corpuscular HGB CONC 32.6 g/dL (32.0-36.0); Mean Corpuscular Hemoglobin 30.1 pg (27.0-31.0); Mean Corpuscular Volume 92.5 fL (78.0-98.0); Mean Platelet Volume 7.3 fL (7.4-10.4); Platelet Count 188 thou/uL (130-400); RBC Distribution Width 14.1 % (11.5-14.5); Red Blood Cell (RBC) Count 3.08 mill/uL (4.20-5.40); White Blood Cell (WBC) Count 19.6 thou/uL (4.8-10.8)
[2021-04-15 06:32] LABS: Band 33 % (5-11); Lymphocytes 4 % (21-51); MDiff Complete? YES; Monocytes 4 % (0-10); Neutrophil 59 % (42-75)
[2021-04-15] MEDS: Pantoprazole 40 MG VIAL IVP SCH (08:00)
[2021-04-15 10:23] LABS: Hemoglobin 8.6 g/dL (12.0-16.0)
[2021-04-15] MEDS ORDERED: Amiodarone 200 MG TAB PO SCH (13:30)
[2021-04-15 18:02] LABS: Hemoglobin 7.8 g/dL (12.0-16.0)
[2021-04-15 18:29] LABS: SARS-CoV-2 IgG Ab Non-Reactive (NonReactive)
[2021-04-15 18:35] LABS: SARS-CoV-2 IgG Index 0.04 S/CO (< 1.40)
[2021-04-15] MEDS: GoLYTELY 4,000 ml Bottle PO SCH (20:23)
[2021-04-16 02:42] LABS: #Eosinphils 0.1 thou/uL (0.0-0.7); #Lymphocytes 3.6 thou/uL (1.20-3.40); #Monocytes 1.7 thou/uL (0.11-0.59); #Neutrophils 8.9 thou/uL (1.40-6.50); %Basophils 0.3 % (0.0-1.0); %Eosinophils 0.9 % (0.0-10.0); %Lymphocytes 25.2 % (21.0-51.0); %Monocytes 12.1 % (0.0-10.0); %Neutrophils 61.5 % (42.0-75.0); Mean Corpuscular HGB CONC 34.5 g/dL (32.0-36.0); Mean Corpuscular Hemoglobin 31.8 pg (27.0-31.0); Mean Corpuscular Volume 92.3 fL (78.0-98.0); Mean Platelet Volume 6.8 fL (7.4-10.4); Platelet Count 330 thou/uL (130-400); RBC Distribution Width 14.6 % (11.5-14.5); Red Blood Cell (RBC) Count 2.51 mill/uL (4.20-5.40); White Blood Cell (WBC) Count 14.4 thou/uL (4.8-10.8)
[2021-04-16] MEDS: GoLYTELY 4,000 ml Bottle PO SCH (03:00)
[2021-04-16 03:11] LABS: Anion Gap 16 mmol/L (10-20); BUN (Urea Nitrogen) 24 mg/dL (9.8-20.1); Calc. Creatinine Clearance 53 mL/min (70-130); Calcium 7.5 mg/dL (7.8-10.44); Carbon Dioxide 17 mmol/L (23-31); Chloride 109 mmol/L (98-107); Glucose 135 mg/dL (83-110); Magnesium 2.3 mg/dL (1.6-2.6); Potassium 3.9 mmol/L (3.5-5.1); Sodium 138 mmol/L (136-145)
[2021-04-16] MEDS: Pantoprazole 40 MG VIAL IVP SCH (08:39)
[2021-04-16] MEDS: Amiodarone 200 MG TAB PO SCH (08:39)
[2021-04-16] MEDS ORDERED: Amiodarone 200 MG TAB PO SCH (09:00)
[2021-04-16] MEDS ORDERED: PROPOFOL 200 MG/20 ML VIAL ONE (13:25)
[2021-04-16] MEDS ORDERED: Fentanyl 100 MCG/2 ML VIAL ONE (14:17)
[2021-04-16] MEDS ORDERED: traMADol HCl 50 MG TAB PO PRN (16:44)
[2021-04-16] MEDS: Potassium Chloride 10 MEQ TAB PO SCH (18:50)
[2021-04-16] MEDS: Carvedilol 3.125 MG TAB PO SCH (18:50)
[2021-04-16] MEDS: Atorvastatin Calcium 40 MG TAB PO SCH (21:19)
[2021-04-16 23:41] LABS: Bacteria/HPF None Seen HPF (None Seen); Bilirubin Negative (Negative); Blood, Urine Negative (Negative); Clarity Clear (Clear); Glucose, Urine (Dipstick) Normal (Negative); Ketone, Urine Negative (Negative); Leukocyte Negative Leu/uL (Negative); Nitrite Negative (Negative); Protein, Urine (Dipstick) Negative (Neg-Trace); RBC/HPF 0-3 HPF (0-3); Specific Gravity, Urine 1.014 (1.002-1.036); Squamous Epithelial 0-3 HPF (0-3); Urobilinogen Normal mg/dL (Less than 2); WBC/HPF 0-3 HPF (0-3); pH, Urine 5.5 (5.0-9.0)
[2021-04-16 23:46] LABS: Urine Culture Reflex No No
[2021-04-17 04:46] LABS: #Eosinphils 0.3 thou/uL (0.0-0.7); #Lymphocytes 2.5 thou/uL (1.20-3.40); #Neutrophils 5.4 thou/uL (1.40-6.50); %Basophils 0.4 % (0.0-1.0); %Eosinophils 2.7 % (0.0-10.0); %Lymphocytes 27.2 % (21.0-51.0); %Monocytes 11.2 % (0.0-10.0); %Neutrophils 58.4 % (42.0-75.0); Mean Corpuscular HGB CONC 34.8 g/dL (32.0-36.0); Mean Corpuscular Hemoglobin 32.1 pg (27.0-31.0); Mean Corpuscular Volume 92.1 fL (78.0-98.0); Mean Platelet Volume 6.8 fL (7.4-10.4); Platelet Count 324 thou/uL (130-400); RBC Distribution Width 14.6 % (11.5-14.5); Red Blood Cell (RBC) Count 2.17 mill/uL (4.20-5.40); White Blood Cell (WBC) Count 9.3 thou/uL (4.8-10.8)
[2021-04-17 05:03] LABS: Anion Gap 11 mmol/L (10-20); BUN (Urea Nitrogen) 13 mg/dL (9.8-20.1); Calc. Creatinine Clearance 63 mL/min (70-130); Calcium 7.9 mg/dL (7.8-10.44); Carbon Dioxide 20 mmol/L (23-31); Chloride 110 mmol/L (98-107); Glucose 123 mg/dL (83-110); Magnesium 2.2 mg/dL (1.6-2.6); Potassium 4.3 mmol/L (3.5-5.1); Sodium 137 mmol/L (136-145)
[2021-04-17 07:59] LABS: Hemoglobin 7.1 g/dL (12.0-16.0)
[2021-04-17] MEDS: Furosemide 40 MG TAB PO SCH (11:07)
[2021-04-17] MEDS: Carvedilol 3.125 MG TAB PO SCH ×2 (11:07→17:21)
[2021-04-17] MEDS: Potassium Chloride 10 MEQ TAB PO SCH ×2 (11:07→17:21)
[2021-04-17] MEDS: Lisinopril 10 MG TAB PO SCH (11:07)
[2021-04-17] MEDS: Amiodarone 200 MG TAB PO SCH (11:07)
[2021-04-17] MEDS: Pantoprazole 40 MG VIAL IVP SCH (11:08)
[2021-04-17 12:25] LABS: Platelet Count 381 thou/uL (130-400)
[2021-04-17] MEDS ORDERED: Aspirin 81 mg Enteric Coated Tablet PO SCH (16:45)
[2021-04-17] MEDS: Atorvastatin Calcium 40 MG TAB PO SCH (20:02)
[2021-04-18 04:42] LABS: Hemoglobin 7.2 g/dL (12.0-16.0); Platelet Count 365 thou/uL (130-400)
[2021-04-18] MEDS: Carvedilol 3.125 MG TAB PO SCH (07:27)
[2021-04-18] MEDS: Potassium Chloride 10 MEQ TAB PO SCH (07:27)
[2021-04-18] MEDS: Furosemide 40 MG TAB PO SCH (07:27)
[2021-04-18] MEDS: Amiodarone 200 MG TAB PO SCH (07:28)
[2021-04-18] MEDS: Pantoprazole 40 MG VIAL IVP SCH (07:28)
[2021-04-18] MEDS: Lisinopril 10 MG TAB PO SCH (07:28)
[2021-04-18] MEDS ORDERED: Aspirin 81 mg Enteric Coated Tablet PO SCH (09:00)
[2021-04-18 12:44] LABS: Hemoglobin 7.4 g/dL (12.0-16.0); Platelet Count 422 thou/uL (130-400)
[2021-04-18 16:26] VITALS: BP 106/52; TEMP 98.4
== END 2021-04-18 17:05 | disposition home or self-care (01) | DRG 377 ==
LOC: ERS 21:01 → CCU 22:26 → 2SW 04-16 14:53
PROVIDERS: ADMIT Internal Medicine; ATTEND Family Medicine
PROC: 8E0ZXY6 Isolation (ICD-10-PCS; 2021-04-14)
PROC: 30233R1 Transfusion of Nonautologous Platelets into Peripheral Vein, Percutaneous Approach (ICD-10-PCS; 2021-04-14)
PROC: 30233N1 Transfusion of Nonautologous Red Blood Cells into Peripheral Vein, Percutaneous Approach (ICD-10-PCS; 2021-04-14)
PROC: 0DJ08ZZ Inspection of Upper Intestinal Tract, Via Natural or Artificial Opening Endoscopic (ICD-10-PCS; principal; 2021-04-16)
PROC: 0W3P8ZZ Control Bleeding in Gastrointestinal Tract, Via Natural or Artificial Opening Endoscopic (ICD-10-PCS; 2021-04-16)
DX: K57.31 Diverticulosis of large intestine without perforation or abscess with bleeding (principal); U07.1 COVID-19; I50.42 Chronic combined systolic (congestive) and diastolic (congestive) heart failure; N17.9 Acute kidney failure, unspecified; I48.92 Unspecified atrial flutter; D62 Acute posthemorrhagic anemia; I24.8 Other forms of acute ischemic heart disease; I25.10 Atherosclerotic heart disease of native coronary artery without angina pectoris; R77.8 Other specified abnormalities of plasma proteins; D72.829 Elevated white blood cell count, unspecified; I95.9 Hypotension, unspecified; I11.0 Hypertensive heart disease with heart failure; I48.0 Paroxysmal atrial fibrillation; K57.30 Diverticulosis of large intestine without perforation or abscess without bleeding; K44.9 Diaphragmatic hernia without obstruction or gangrene; K64.4 Residual hemorrhoidal skin tags; K63.5 Polyp of colon; Z95.1 Presence of aortocoronary bypass graft; Z79.82 Long term (current) use of aspirin; Z79.899 Other long term (current) drug therapy; I25.2 Old myocardial infarction
CPT/HCPCS: 0240U; 36415; 36430; 36556; 71045; 80048; 80053; 81001; 82274; 82553; 83735; 84484; 85014; 85018; 85025; 85049; 85610; 85730; 86769; 86850; 86900; 86901; 93005; 93010; 96365; 96375; C9113; J0282; J2405; J2550; J2704; J3010; J3475; J3480; J7070; P9016; P9035